=== PATIENT | male | born 1960 | race Caucasian/White ===

== ENCOUNTER 2018-01-03 06:00 | Emergency (ER) | payer BC ==
[2018-01-03 06:21] VITALS: BMI 25.1
--- NOTE | 2018-01-03 06:57 | PDOC ---
History of Present Illness - General History Source: Patient Exam Limitations: No Limitations - History of Present Illness Initial Comments: 01/03/18 06:58 The patient is a 57 year old male, with a significant PMH of DM, who presents to the emergency department for evaluation of a forehead laceration s/p syncopal episode just prior to arrival. The patient states he woke up this morning and went to use the restroom. The patient states while urinating he began to feel faint and passed out from standing falling onto the bathroom floor. The patient states he had a similar syncopal episode a few years ago when he was having meal with hot sauce that he says was to hot and subsequently fainted. The patient states he believes he hit his head on the bathroom floor (rug) but states there was also a chair nearby in the bathroom that he may have hit. The patient also states he has noticed swollen ankles lately that has prevented him from playing soccer. The patient denies chest pain, palpitations, shortness of breath, headache and dizziness. Denies fever, chills, nausea, vomit, diarrhea and constipation. Denies dysuria, frequency, urgency and hematuria. Allergies: NKA <Nick Carlos - Last Filed: 01/03/18 07:02> <Charissa Urban - Last Filed: 01/04/18 01:03> - General Chief Complaint: Injury Stated Complaint: INJURY,FOREHEAD Time Seen by Provider: 01/03/18 06:25 Past History <Nick Carlos - Last Filed: 01/03/18 07:02> - Past Medical History COPD: No - Suicide/Smoking/Psychosocial Hx Smoking History: Never smoked Have you smoked in the past 12 months: No Information on smoking cessation initiated: No Hx Alcohol Use: No Drug/Substance Use Hx: No Substance Use Type: None <Charissa Urban - Last Filed: 01/04/18 01:03> - Past Medical History Allergies/Adverse Reactions: Allergies Allergy/AdvReac Type Severity Reaction Status Date / Time No Known Allergies Allergy Verified 01/03/18 06:33 Home Medications: Ambulatory Orders NK [No Known Home Medication] 01/03/18 Review of Systems - Review of Systems Comments:: 01/03/18 06:58 GENERAL/CONSTITUTIONAL: No fever or chills. No weakness. HEAD, EYES, EARS, NOSE AND THROAT: (+) Forehead laceration. No change in vision. No ear pain or discharge. No sore throat. CARDIOVASCULAR: No chest pain or shortness of breath. RESPIRATORY: No cough, wheezing, or hemoptysis. GASTROINTESTINAL: No nausea, vomiting, diarrhea or constipation. GENITOURINARY: No dysuria, frequency, or change in urination. MUSCULOSKELETAL: No joint or muscle swelling or pain. No neck or back pain. SKIN: No rash NEUROLOGIC: (+) Loss of consciousness. No headache, vertigo, or change in strength/sensation. ENDOCRINE: No increased thirst. No abnormal weight change. HEMATOLOGIC/LYMPHATIC: No anemia, easy bleeding, or history of blood clots. ALLERGIC/IMMUNOLOGIC: No hives or skin allergy. <Nick Carlos - Last Filed: 01/03/18 07:02> *Physical Exam - Vital Signs Last Vital Signs Temp Pulse Resp BP Pulse Ox 98.4 F 60 20 121/83 96 01/03/18 06:20 01/03/18 06:20 01/03/18 06:20 01/03/18 06:20 01/03/18 06:20 - Physical Exam Comments: 01/03/18 07:02 GENERAL: Awake, alert, and fully oriented, in no acute distress. Patient drove himself to the ER. HEAD: (+) 3 inch linear diagonal full thickness laceration in center of the forehead. EYES: PERRLA, EOMI, sclera anicteric, conjunctiva clear ENT: Auricles normal inspection, hearing grossly normal, nares patent, oropharynx clear without exudates. Moist mucosa NECK: Normal ROM, supple, no lymphadenopathy, JVD, or masses LUNGS: Breath sounds equal, clear to auscultation bilaterally. No wheezes, and no crackles HEART: Regular rate and rhythm, normal S1 and S2, no murmurs, rubs or gallops ABDOMEN: Soft, nontender, normoactive bowel sounds. No guarding, no rebound. No masses EXTREMITIES: (+) Pitting edema lower extremities bilaterally ankles to mid evans. Normal range of motion. No clubbing or cyanosis. No cords, erythema, or tenderness NEUROLOGICAL: Cranial nerves II through XII grossly intact. Normal speech, normal gait SKIN: Warm, Dry, normal turgor, no rashes or lesions noted. <Nick Carlos - Last Filed: 01/03/18 07:02> - Vital Signs Last Vital Signs Temp Pulse Resp BP Pulse Ox 98.4 F 60 20 121/83 96 01/03/18 06:20 01/03/18 06:20 01/03/18 06:20 01/03/18 06:20 01/03/18 06:20 <Charissa Urban - Last Filed: 01/04/18 01:03> Procedures - Laceration/Wound Repair Head Wound Length: 2.6 to 5.0 cm Wound Explored: clean Wound's Depth, Shape: into muscle, linear Irrigated w/ Saline: Yes Betadine Prep: Yes Anesthesia: 2% Lidocaine w/ Epi Amount of Anesthetic (ccs): 5 Wound Repaired With: Sutures Suture Size/Type: 6:0, proline, other Number of Sutures: 10 Layer Closure: Yes Deep Layer Suture Size/Type: 3:0, gut Number of Deep Layer Sutures: 3 Sterile Dressing Applied: Yes <Charissa Urban - Last Filed: 01/04/18 01:03> ED Treatment Course - LABORATORY CBC & Chemistry Diagram: 01/03/18 07:15 01/03/18 07:15 <Charissa Urban - Last Filed: 01/04/18 01:03> Medical Decision Making - Medical Decision Making 01/04/18 01:01 Pt had what seems to be micturition syncope. We ordered head CT labs and EKG and repaired his forehead laceration. He will be signed out to the day ER doctors. <Charissa Urban - Last Filed: 01/04/18 01:03> *DC/Admit/Observation/Transfer - Attestations Scribe Attestion: 01/03/18 06:59 Documentation prepared by Nick Carlos, acting as medical office assistant for Charissa Urban MD. <Nick Carlos - Last Filed: 01/03/18 07:02> <Charissa Urban - Last Filed: 01/04/18 01:03> Diagnosis at time of Disposition: Laceration, Syncope, Lung mass - Discharge Dispostion Disposition: HOME Condition at time of disposition: Improved - Referrals Referrals: Prateek Dias MD [Primary Care Provider] - Yonny Currie MD [Staff Physician] - Ana Laura Moss MD [Staff Physician] - Shai Adkins MD, MD [Staff Physician] - - Patient Instructions Printed Discharge Instructions: DI for Syncope in Adults (Fainting), DI for Suture Removal Additional Instructions: you should follow up wtih dr. Dias on friday, call to confirm. . you should also arrange followup wtih a electric meter installer. if you do not have one you can call dr. Currie see referral information for phone number. return for any chest pain, palpitations or any concerns. drink plenty of water. you work up today included labs work, ekg cxr and bedside ultra sound of heart and legs. ther is no proximal DVT and you should follow up in one week for persistant leg swelling. your cardiac echo is normal with no pericardial effusion and good contractility. your CT of the chest shows a 5.8 cm mass on left lung. you need to discuss with DR. Dias for referral to see a oncologist to discuss workup and treatment. you should also follow up with DR Adkins, basketball coach. call to schedule for early next week. - Post Discharge Activity
[2018-01-03 07:39] LABS: BASO % 0.5 % (0-2.0); EOS % 0.4 % (0-4.5); HEMATOCRIT 33.7 % (35.4-49); HEMOGLOBIN 11.7 GM/dL (11.7-16.9); LYMPH % 23.1 % (8-40); MCH 32.7 pg (25.7-33.7); MCHC 34.7 g/dl (32.0-35.9); MEAN CELL VOLUME 94.3 fl (80-96); MEAN PLT VOLUME 7.8 fl (7.5-11.1); MONO % 6.2 % (3.8-10.2); NEUT % 69.8 % (42.8-82.8); PLATELET COUNT 329 K/MM3 (134-434); RBC 3.58 M/mm3 (4.00-5.60); WHITE BLOOD COUNT 8.3 K/mm3 (4.0-10.0)
[2018-01-03 08:17] LABS: ALBUMIN 3.3 g/dl (3.4-5.0); ANION GAP 1 (8-16); BILIRUBIN,TOTAL 0.4 mg/dL (0.2-1.0); BLOOD UREA NITROGEN 16 mg/dL (7-18); CALCIUM 8.4 mg/dL (8.5-10.1); CHLORIDE 107 mmol/L (98-107); CO2 29 mmol/L (21-32); CREATININE 0.9 mg/dL (0.7-1.3); GLUCOSE,RANDOM 152 mg/dL (74-106); POTASSIUM 4.6 mmol/L (3.5-5.1); SGOT/AST 11 U/L (15-37); SGPT/ALT 19 U/L (12-78); SODIUM 137 mmol/L (136-145); TOT PROT 6.9 g/dl (6.4-8.2)
[2018-01-03 08:20] LABS: ALK PHOS 178 U/L (45-117)
[2018-01-03] MEDS ORDERED: SODIUM CHLORIDE 0.9% 1000 ML INFUS.BAG IV ONE (08:55)
--- NOTE | 2018-01-03 09:18 | PDOC ---
*Physical Exam - Vital Signs Last Vital Signs Temp Pulse Resp BP Pulse Ox 98.4 F 60 20 121/83 96 01/03/18 06:20 01/03/18 06:20 01/03/18 06:20 01/03/18 06:20 01/03/18 06:20 - Physical Exam General Appearance: Yes: Appropriately Dressed HEENT: positive: Other (s/p laceration repair. bandage intact. no bleeding. ) Neck: negative: Tender Respiratory/Chest: positive: Lungs Clear, Normal Breath Sounds Cardiovascular: positive: Regular Rhythm, Regular Rate, S1, S2 Gastrointestinal/Abdominal: positive: Normal Bowel Sounds, Flat. negative: Tender Extremity: positive: Normal Capillary Refill, Pedal Edema (bilat pitting edema. right >left ) Integumentary: positive: Normal Color, Dry, Warm, Other (laceration see above) Neurologic: positive: Fully Oriented, Alert, Normal Mood/Affect, Motor Strength 5/5 Heart Score/ECG Review #1 General ECG Interpretation: Sinus Rhythm, Normal Rate, Normal Intervals, No acute ischemic changes (TwI III only) Compared to previous ECG there are: Previous ECG unavail ED Treatment Course - LABORATORY CBC & Chemistry Diagram: 01/03/18 07:15 01/03/18 07:15 - ADDITIONAL ORDERS Additional order review: Laboratory Results 01/03/18 07:15 Sodium 137 Potassium 4.6 Chloride 107 Carbon Dioxide 29 Anion Gap 1 L BUN 16 Creatinine 0.9 Creat Clearance w eGFR > 60 Random Glucose 152 H Calcium 8.4 L Total Bilirubin 0.4 AST 11 L ALT 19 Alkaline Phosphatase 178 H Creatine Kinase 52 Troponin I < 0.02 Total Protein 6.9 Albumin 3.3 L 01/03/18 07:15 RBC 3.58 L MCV 94.3 MCHC 34.7 RDW 12.0 MPV 7.8 Neutrophils % 69.8 Lymphocytes % 23.1 Monocytes % 6.2 Eosinophils % 0.4 Basophils % 0.5 Progress Note - Progress Note Progress Note: labs unremarkable. ct head negative. ekg nonspecific. given iv fluids. focused ED TTE performed indication: syncope heart scanned in four views ( parasternal long and short, apical and subxiphoid) overall good contractility no global wall motion abnoramlities. no rv dilation or strain, no pericardial effusion. impression: normal TTE focused ED ultrasound bilateral lower extremities. bilateral legs scanned using linear transducer from common femoral past birfucation, and in popliteal region past trifucation. full compression and normal color flow at all sites. no visualized clot. impression: no proximal DVT bilateral lower extremities. recommend repeat in 5 - 7 days if symptoms persist. qi Medical Decision Making - Medical Decision Making 01/03/18 09:12 assumed care of pt at 7 am, signed out to me by Dr. Urban . 57 yo male h/o borderline dm, currently treating with diet modification, here s/ p micturition syncopy. denies cp no precipitating palpitations. however does complain of intermittent palpitations. also c/o bilateral leg swelling recently. was evaluated one week ago with outpt ultrasound to r/o dvt which was negative. no prior cardiac workup. no family h/o heart disease. on exam pt with normal cardiac and lung exam. abd soft nt. ext wwp. bilat edema. right greater than left. nuero alert oriented x 3, strength five / five plan bedside tte, right lower ext r/o dvt. iv hydration labs. ct head pending results. ua 01/03/18 11:[address] dias to arrange followup care. work up negative. 01/03/18 15:37 d/w dr. Adkins pulmnologist. will see pt in office. *DC/Admit/Observation/Transfer Diagnosis at time of Disposition: Laceration, Syncope, Lung mass - Discharge Dispostion Disposition: HOME Condition at time of disposition: Improved - Referrals Referrals: Prateek Dias MD [Primary Care Provider] - Yonny Currie MD [Staff Physician] - Ana Laura Moss MD [Staff Physician] - Shai Adkins MD, MD [Staff Physician] - - Patient Instructions Printed Discharge Instructions: DI for Syncope in Adults (Fainting), DI for Suture Removal Additional Instructions: you should follow up wtih dr. Dias on friday, call to confirm. . you should also arrange followup wtih a job coaching. if you do not have one you can call dr. Currie see referral information for phone number. return for any chest pain, palpitations or any concerns. drink plenty of water. you work up today included labs work, ekg cxr and bedside ultra sound of heart and legs. ther is no proximal DVT and you should follow up in one week for persistant leg swelling. your cardiac echo is normal with no pericardial effusion and good contractility. your CT of the chest shows a 5.8 cm mass on left lung. you need to discuss with DR. Dias for referral to see a oncologist to discuss workup and treatment. you should also follow up with DR Adkins, paper products machine operator. call to schedule for early next week. - Post Discharge Activity
[2018-01-03 10:41] LABS: URINE APPEARANCE CLEAR; URINE BILIRUBIN NEGATIVE (<2.0 mg/dL); URINE COLOR YELLOW; URINE GLUCOSE (UA) NEGATIVE (NEGATIVE); URINE KETONE NEGATIVE (NEGATIVE); URINE LEUK ESTERASE NEGATIVE (NEGATIVE); URINE NITRITE NEGATIVE (NEGATIVE); URINE PROTEIN NEGATIVE (NEGATIVE)
[2018-01-03 15:55] VITALS: BP 113/76; PULSE 60; TEMP 98.5
--- NOTE | 2018-01-04 15:13 | EKG ---
Test Reason : Blood Pressure : / mmHG Vent. Rate : 054 BPM Atrial Rate : 054 BPM P-R Int : 172 ms QRS Dur : 098 ms QT Int : 432 ms P-R-T Axes : 061 033 020 degrees QTc Int : 409 ms SINUS BRADYCARDIA OTHERWISE NORMAL ECG NO PREVIOUS ECGS AVAILABLE Confirmed by BISHOP ASCENCIO, PRECIOUS ([id number]) on 01/04/2018 3:13:07 PM Referred By: Confirmed By:PRECOIUS ALAS MD
== END 2018-01-03 15:56 | disposition home or self-care (01) ==
LOC: JER 06:00
PROC: 0JQ10ZZ Repair Face Subcutaneous Tissue and Fascia, Open Approach (ICD-10-PCS; principal; 2018-01-03)
PROC: 0JQ10ZZ Repair Face Subcutaneous Tissue and Fascia, Open Approach (ICD-10-PCS; 2018-01-03)
PROC: 3E0337Z Introduction of Electrolytic and Water Balance Substance into Peripheral Vein, Percutaneous Approach (ICD-10-PCS; 2018-01-03)
DX: R55 Syncope and collapse (principal); S01.81XA Laceration without foreign body of other part of head, initial encounter; W01.198A Fall on same level from slipping, tripping and stumbling with subsequent striking against other object, initial encounter; Y93.89 Activity, other specified; Y92.012 Bathroom of single-family (private) house as the place of occurrence of the external cause; R60.0 Localized edema; R91.8 Other nonspecific abnormal finding of lung field
CPT/HCPCS: 36415; 70450-TC; 71046-TC-FY; 71250-TC; 80053; 81003; 82550; 84484; 85025; 93005; 93010; 99282-25; J7030